=== PATIENT | female | born 1975 ===

== ENCOUNTER 2017-06-29 05:27 | Inpatient (IN) | payer OTHER ==
[~2017-06-29 05:27] MED LIST: CITRIC ACID/SODIUM CITRATE 30 ML UNIT-DOSE CUP PO ONE; ELECTROLYTE-148 SOLN 500 ML IV ONE
[2017-06-29] MEDS ORDERED: ELECTROLYTE-148 SOLN 1,000 ML IV SCH (05:56)
[2017-06-29 06:13] VITALS: BMI 43.1
[2017-06-29 07:01] LABS: BASO % 0.6 % (0-2.0); EOS % 1.9 % (0-4.5); HEMATOCRIT 28.2 % (32.4-45.2); HEMOGLOBIN 9.1 GM/dL (10.7-15.3); LYMPH % 19.3 % (8-40); MCH 23.6 pg (25.7-33.7); MCHC 32.2 g/dl (32.0-36.0); MEAN CELL VOLUME 73.4 fl (80-96); MEAN PLT VOLUME 6.5 fl (7.5-11.1); MONO % 7.6 % (3.8-10.2); NEUT % 70.6 % (42.8-82.8); PLATELET COUNT 361 K/MM3 (134-434); RBC 3.85 M/mm3 (3.60-5.2); RDW 17.4 % (11.6-15.6); WHITE BLOOD COUNT 9.9 K/mm3 (4.0-10.0)
[2017-06-29 08:01] LABS: INR 0.96 (0.82-1.09); PROTHROMBIN TIME (PATIENT) 10.8 SEC (9.98-11.88)
[2017-06-29 08:04] LABS: ACTIVATED PTT 28.2 SECONDS (26.9-34.4)
[2017-06-29 08:09] LABS: ANION GAP 10 (8-16); BLOOD UREA NITROGEN 10 mg/dL (7-18); CALCIUM 7.6 mg/dL (8.5-10.1); CHLORIDE 109 mmol/L (98-107); CO2 20 mmol/L (21-32); CREATININE 0.5 mg/dL (0.55-1.02); GLUCOSE,RANDOM 77 mg/dL (74-106); POTASSIUM 3.8 mmol/L (3.5-5.1); SODIUM 139 mmol/L (136-145)
[2017-06-29] MEDS ORDERED: TUBERCULIN PPD 5 TU/0.1ML SYRINGE (IN PATIENT USE ONLY) ID ONE (09:00)
--- NOTE | 2017-06-29 09:19 | HP ---
Past Medical History - Primary Care Physician PCP:: Malena Chaparro - Admission Chief Complaint: previous Section x 3. iup at 39 week History of Present Illness: 41 yo EDC EGA 39 week with prev CS x 3 for repeat CS HIV neg GBS History Source: Patient Limitations to Obtaining History: No Limitations - Past Medical History ...: 5 ...Para: 3 ...Term: 3 ...: 0 ...Spon : 1 ...Induced : 0 ...Multiple Gestation: 0 ...LMP: 09/23/16 ... Weeks Gestation by Dates: 39.6 ...EDC by Dates: 06/30/17 ...EDC by Sono: 07/07/17 - Past Surgical History Past Surgical History: Yes: Hx Myomectomy: No Hx Transabdominal Cerclage: No - Smoking History Smoking history: Never smoked Have you smoked in the past 12 months: No - Alcohol/Substance Use Hx Alcohol Use: No History of Substance Use: reports: None - Social History Usual Living Arrangement: Yes: With Spouse History of Recent Travel: No Home Medications - Allergies Allergies/Adverse Reactions: Allergies Allergy/AdvReac Type Severity Reaction Status Date / Time apple Allergy Verified 06/29/17 06:14 cat dander Allergy Verified 06/29/17 06:14 dog dander Allergy Verified 06/29/17 06:14 kiwi Allergy Verified 06/29/17 06:14 sunflower seed Allergy Verified 06/29/17 06:14 - Home Medications Home Medications: Ambulatory Orders Albuterol Sulfate Inhaler - [Ventolin Hfa Inhaler -] 1 - 2 inh PO PRN 04/25/17 B12/Levomefolate Calcium/B-6 [Foltx Tablet] 1 each PO DAILY 04/25/17 Docusate Sodium [Colace -] 100 mg PO TID 04/25/17 Vit No.130/Iron/Folic [ Vitamins] 1 each PO DAILY 04/25/17 Review of Systems - Review of Systems Constitutional: reports: No Symptoms Eyes: reports: No Symptoms HENT: reports: No Symptoms Neck: reports: No Symptoms Cardiovascular: reports: No Symptoms Respiratory: reports: No Symptoms Gastrointestinal: reports: No Symptoms Genitourinary: reports: No Symptoms Breasts: reports: No Symptoms Reported Musculoskeletal: reports: No Symptoms Integumentary: reports: No Symptoms Neurological: reports: No Symptoms Endocrine: reports: No Symptoms Hematology/Lymphatic: reports: No Symptoms Psychiatric: reports: No Symptoms Physical Exam - Maternity Vital Signs: Vital Signs Temperature 97.6 F 06/29/17 08:32 Pulse Rate 95 H 06/29/17 08:32 Respiratory Rate 18 06/29/17 08:32 Blood Pressure 120/56 06/29/17 08:32 O2 Sat by Pulse Oximetry (%) Constitutional: Yes: Well Nourished, No Distress - Abdominal Exam/OB Number of Fetuses: Single Presentation: Vertex Contractions: No Category: I Accelerations: Non-Uniform Decelerations: None - Vaginal Exam/OB Vaginal Bleediing: No Amniotic Membrane Status: Intact Presentation: Vertex/Position - Physical Exam Edema: No - Labs Lab Results: CBC, BMP 06/29/17 06:25 06/29/17 06:25 Hemorrhage Risk Assessment - Risk Factors Medium Risk Factors: Yes: Prior , uterine surgery,or multiple laparotomies Risk Score: 1 Risk Level: Medium Risk Problem List - Problems (1) Previous delivery affecting , antepartum Code(s): O34.219 - MATERNAL CARE FOR UNSP TYPE SCAR FROM PREVIOUS DEL (2) Anemia affecting in third trimester Code(s): O99.013 - ANEMIA COMPLICATING , THIRD TRIMESTER Assessment/Plan IUP at 39 week Previous Section x 3 Anemia AMA Plan Repeat Section
[2017-06-29] MEDS ORDERED: METHYLERGONOVINE MALEATE 0.2 MG/1 ML AMP IM PRN (09:20)
[2017-06-29] MEDS ORDERED: IBUPROFEN 800 MG/8 ML IJ IVPB PRN (09:20)
[2017-06-29] MEDS ORDERED: morphine SULFATE/Preservative Free 0.5 MG/ML (1cc Syringe) SPIN ONE (10:02)
[2017-06-29] MEDS ORDERED: ONDANSETRON 4 MG/2 ML VIAL IVPUSH PRN (10:02)
[2017-06-29 10:19] LABS: ARTERIAL BLOOD GAS pH 7.37 (7.35-7.45)
[2017-06-29 10:21] LABS: ARTERIAL BLD GAS O2 SATURATION 64.1 % (90-98.9); ARTERIAL BLOOD GAS PO2 32.9 mmHg (80-100)
[2017-06-29 10:22] LABS: ARTERIAL BLOOD GAS BASE EXCESS -3.2 meq/l (-2-2); VENOUS PC02 36.8 mmHg (38-52); VENOUS PH 7.39 (7.32-7.42); VENOUS PO2 30.7 mmHg (28-48)
--- NOTE | 2017-06-29 10:49 | OP ---
Operative Note - Note: Operative Date: 06/29/17 Pre-Operative Diagnosis: Previous CS x 3. IUP at 39 week Operation: Repeat Section Findings: Live female infant nuchal cord x 1 Post-Operative Diagnosis: Same as Pre-op Surgeon: Malena Chaparro Modeling Teacher: Zulema Herbert Anesthesia: Spinal Estimated Blood Loss (mls): 500 Operative Report Dictated: Yes
[2017-06-29] MEDS ORDERED: ACETAMINOPHEN 325 MG TABLET (FP) PO PRN (10:52)
[2017-06-29] MEDS ORDERED: OXYTOCIN 20 UNITS in 0.9% NS 20 UNIT/1,000 ML INFUS.BAG IV ONE (11:49)
[2017-06-29] MEDS: OXYTOCIN 20 UNITS in 0.9% NS 20 UNIT/1,000 ML INFUS.BAG IV SCH (11:53)
--- NOTE | 2017-06-29 13:05 | OP ---
DATE OF OPERATION: 06/29/2017 PREOPERATIVE DIAGNOSIS: Previous section x3, intrauterine at 39 weeks. OPERATION: Repeat section. POSTOPERATIVE DIAGNOSIS: Previous section x3, intrauterine at 39 weeks, live female infant, nuchal cord x1. SURGEON: Malena Chaparro MD GALLERY OR MUSEUM TECHNICIAN: Zulema Herbert MD ANESTHESIOLOGIST: Aryan Valdez MD ANESTHESIA: Spinal. FINDINGS: A live female infant delivered in OT position. Nuchal cord x1. Cord blood and cord pH obtained. DESCRIPTION OF PROCEDURE: The patient was taken to the operating room and placed in supine position, prepped and draped in the usual sterile fashion. A time-out was performed in accordance with hospital regulation. A Pfannenstiel skin incision was made through the previous scar. Cautery was then used to go through layers of the abdominal wall to the level of the fascia. The fascia was cut in the midline. Cautery was then used to open the fascia in a smiling fashion. Kochers were then used to bluntly and sharply dissect the rectus muscle off the fascia. Muscle was split in the midline. The peritoneal cavity was then entered and carried up and down. A bladder retractor was then placed. The vesicouterine reflection was then entered. The bladder was bluntly dissected out of the operative field. Scalpel was then used to make a low transverse uterine incision. Incision was carried upward using bandage scissors. A live female infant was delivered in OT position. Nose and mouth suction performed. Nuchal cord x1 reduced. Delayed cord clamping was done. Shoulders were delivered without difficulty. The cord was clamped and cut. The infant was handed to the replanting machine operator. Cord pH and cord blood obtained. Placenta was manually extracted from the uterus. The uterus was exteriorized and cleaned with clean laparotomy pads. Uterine incision was then closed using 0 Biosyn suture 1st layer continuous and locking, 2nd layer imbricating the 1st layer. Hemostasis was achieved using [id number] sutures. The bladder was then tacked to the uterus for hemostasis. The uterus interiorized. Tubes and ovaries noted to be normal. Abdominal cavity cleaned with clean laparotomy pads. Abdominal sweep done. Peritoneum was closed using 0 Biosyn suture in continuous fashion. The fascia was then closed using 0 Vicryl suture in 2 parts. The subcutaneous was then closed using 0 Biosyn suture in a continuous stitch. The skin was then closed using 3- 0 Vicryl in subcuticular fashion. The wound was washed and dressed. The patient tolerated the procedure well. Estimated blood loss was 500 mL. Whit [id number] MTDD
[2017-06-29] MEDS: ACETAMINOPHEN 1000 MG/100 ML VIAL (NON FORMULARY) IVPB PRN ×2 (13:39→19:44)
[2017-06-30] MEDS: ACETAMINOPHEN 1000 MG/100 ML VIAL (NON FORMULARY) IVPB PRN (02:19)
[2017-06-30 07:52] LABS: BASO % 0.6 % (0-2.0); HEMATOCRIT 25.6 % (32.4-45.2); HEMOGLOBIN 8.1 GM/dL (10.7-15.3); LYMPH % 8.9 % (8-40); MCH 23.3 pg (25.7-33.7); MCHC 31.5 g/dl (32.0-36.0); MEAN PLT VOLUME 6.5 fl (7.5-11.1); MONO % 5.5 % (3.8-10.2); PLATELET COUNT 308 K/MM3 (134-434); RBC 3.46 M/mm3 (3.60-5.2); RDW 17.3 % (11.6-15.6); WHITE BLOOD COUNT 9.4 K/mm3 (4.0-10.0)
[2017-06-30] MEDS: IBUPROFEN 600 MG TABLET (FP) PO PRN ×3 (09:12→22:45)
[2017-06-30] MEDS: SIMETHICONE 80 MG TAB.CHEW (FP) PO PRN ×2 (09:13→15:01)
--- NOTE | 2017-06-30 09:26 | PN ---
Progress Note (short form) - Note Progress Note: Anesthesiology Post-op 41 y.o. female POD#1 s/p repeat C/S under spinal anesthesia. Pt. c/o some discomfort due to need to void. Otherwise, she is doing well, denies h/a or n/v. VSS. No apparent anesthesia-related issues. Stable post-operative course. Continue management per primary team.
[2017-06-30] MEDS ORDERED: BISACODYL 10 MG SUPP.RECT RC PRN (10:52)
--- NOTE | 2017-06-30 11:42 | PN ---
Progress Note (SOAP) - Subjective Chief Complaint: Pt passed out in bathroom with nurse and pt had a vaso vagal reaction to seeing blood and got anxious - Current Medications Current Medications: Active Medications Acetaminophen (Ofirmev Injection -) 1,000 mg IVPB Q6H PRN PRN Reason: PAIN Last Admin: 06/30/17 02:19 Dose: 1,000 mg Bisacodyl (Dulcolax Suppository -) 10 mg RC PRN PRN PRN Reason: CONSTIPATION Diphenhydramine HCl (Benadryl Injection -) 25 mg IVPUSH Q4H PRN PRN Reason: Pruritis Parenteral Electrolytes (Plasma-Lyte 148 -) 1,000 mls @ 125 mls/hr IV [facility] Last Admin: 06/29/17 07:45 Dose: 125 mls/hr Oxytocin/Sodium Chloride (Normal Saline+20 Units Oxytocin -) 20 unit in 1,000 mls @ 125 mls/hr IV ASDIR [facility] Last Admin: 06/29/17 11:53 Dose: 125 mls/hr Parenteral Electrolytes (Plasma-Lyte 148 -) 1,000 mls @ 125 mls/hr IV [facility]IR [facility] Ibuprofen (Caldolor Injection -) 800 mg IVPB Q8H PRN PRN Reason: PAIN Ibuprofen (Motrin -) 600 mg PO Q4H PRN PRN Reason: PAIN LEVEL 1 - 3 Last Admin: 06/30/17 09:12 Dose: 600 mg Methylergonovine Maleate (Methergine Injection -) 0.2 mg IM Q4H PRN PRN Reason: Excessive Bleeding (L&D) Ondansetron HCl (Zofran Injection) 4 mg IVPUSH Q4H PRN PRN Reason: NAUSEA Oxycodone HCl (Roxicodone -) 5 mg PO Q4H PRN PRN Reason: PAIN LEVEL 4 - 6 Oxycodone HCl (Roxicodone -) 10 mg PO Q4H PRN PRN Reason: PAIN LEVEL 7 - 10 Simethicone (Mylicon -) 80 mg PO Q4H PRN PRN Reason: GAS Last Admin: 06/30/17 09:13 Dose: 80 mg - Objective Vital Signs: Vital Signs Temperature 98.5 F 06/30/17 07:20 Pulse Rate 85 06/30/17 07:20 Respiratory Rate 20 06/30/17 08:00 Blood Pressure 110/73 06/30/17 07:20 O2 Sat by Pulse Oximetry (%) 100 06/29/17 11:45 Constitutional: Yes: Well Nourished, No Distress Respiratory: Yes: WNL Gastrointestinal: Yes: WNL Breast(s): Yes: WNL Musculoskeletal: Yes: WNL Extremities: Yes: WNL Labs Lab Results: CBC, BMP 06/30/17 06:46 06/29/17 06:25 Problem List - Problems (1) Previous delivery affecting , antepartum Code(s): O34.219 - MATERNAL CARE FOR UNSP TYPE SCAR FROM PREVIOUS DEL Assessment/Plan SP CS POD 1 Anemia Plan Bed rest Percocet
[2017-06-30] MEDS: DOCUSATE SODIUM 100 MG CAPSULE (FP) PO SCH ×2 (14:59→22:47)
[2017-06-30] MEDS: ACETAMINOPHEN 325 MG TABLET (FP) PO PRN ×2 (15:01→22:45)
[2017-06-30] MEDS ORDERED: MAGNESIUM HYDROX 2400MG/30ML ORAL SUSPENSION 30 ML CUP PO PRN (17:35)
[2017-06-30] MEDS: POLYETHYLENE GLYCOL 3350 119 GM BTL PO SCH (17:51)
[2017-06-30] MEDS ORDERED: ZOLPIDEM TARTRATE 5 MG TABLET PO PRN (23:38)
[2017-07-01] MEDS: SIMETHICONE 80 MG TAB.CHEW (FP) PO PRN ×5 (04:55→22:19)
[2017-07-01] MEDS: IBUPROFEN 600 MG TABLET (FP) PO PRN ×5 (04:55→22:20)
[2017-07-01] MEDS: ACETAMINOPHEN 325 MG TABLET (FP) PO PRN ×2 (04:59→10:02)
[2017-07-01] MEDS: DOCUSATE SODIUM 100 MG CAPSULE (FP) PO SCH ×3 (06:12→22:20)
[2017-07-01] MEDS ORDERED: BENZOCAINE 28 GM HEMORRHOIDAL OINTMENT TP PRN (09:32)
[2017-07-01] MEDS: POLYETHYLENE GLYCOL 3350 119 GM BTL PO SCH (10:00)
[2017-07-01] MEDS: oxyCODONE HCL 5 MG TABLET PO PRN ×3 (13:52→22:19)
[2017-07-01] MEDS: OXYTOCIN 20 UNITS in 0.9% NS 20 UNIT/1,000 ML INFUS.BAG IV SCH (14:09)
[2017-07-01] MEDS: ELECTROLYTE-148 SOLN 1,000 ML IV SCH (14:09)
[2017-07-02] MEDS: SIMETHICONE 80 MG TAB.CHEW (FP) PO PRN ×4 (05:42→20:47)
[2017-07-02] MEDS: IBUPROFEN 600 MG TABLET (FP) PO PRN ×4 (05:43→20:47)
[2017-07-02] MEDS: oxyCODONE HCL 5 MG TABLET PO PRN ×4 (05:43→20:48)
[2017-07-02] MEDS: DOCUSATE SODIUM 100 MG CAPSULE (FP) PO SCH ×3 (05:46→22:24)
[2017-07-02 07:49] LABS: BASO % 0.9 % (0-2.0); EOS % 5.5 % (0-4.5); HEMATOCRIT 26.2 % (32.4-45.2); HEMOGLOBIN 8.1 GM/dL (10.7-15.3); LYMPH % 27.6 % (8-40); MCH 23.1 pg (25.7-33.7); MEAN CELL VOLUME 74.5 fl (80-96); MEAN PLT VOLUME 6.5 fl (7.5-11.1); PLATELET COUNT 351 K/MM3 (134-434); RBC 3.52 M/mm3 (3.60-5.2); RDW 18.1 % (11.6-15.6)
--- NOTE | 2017-07-02 08:22 | PN ---
Progress Note (SOAP) - Subjective Chief Complaint: Pt doing better No diarrhea - Current Medications Current Medications: Active Medications Acetaminophen (Ofirmev Injection -) 1,000 mg IVPB Q6H PRN PRN Reason: PAIN Last Admin: 06/30/17 02:19 Dose: 1,000 mg Acetaminophen (Tylenol -) 650 mg PO Q4H PRN PRN Reason: PAIN Last Admin: 07/01/17 10:02 Dose: 650 mg Benzocaine (Americaine Ointment -) 1 applic TP PRN PRN PRN Reason: L&D Bisacodyl (Dulcolax Suppository -) 10 mg RC PRN PRN PRN Reason: CONSTIPATION Last Admin: 06/30/17 16:12 Dose: 10 mg Diphenhydramine HCl (Benadryl Injection -) 25 mg IVPUSH Q4H PRN PRN Reason: Pruritis Docusate Sodium (Colace -) 100 mg PO TID [facility] Last Admin: 07/02/17 05:46 Dose: 100 mg Oxytocin/Sodium Chloride (Normal Saline+20 Units Oxytocin -) 20 unit in 1,000 mls @ 125 mls/hr IV [facility] Last Admin: 07/01/17 14:09 Dose: Not Given Parenteral Electrolytes (Plasma-Lyte 148 -) 1,000 mls @ 125 mls/hr IV [facility] Last Admin: 07/01/17 14:09 Dose: Not Given Ibuprofen (Caldolor Injection -) 800 mg IVPB Q8H PRN PRN Reason: PAIN Ibuprofen (Motrin -) 600 mg PO Q4H PRN PRN Reason: PAIN LEVEL 1 - 3 Last Admin: 07/02/17 05:43 Dose: 600 mg Magnesium Hydroxide (Milk Of Magnesia -) 30 ml PO Q24H PRN PRN Reason: CONSTIPATION Last Admin: 06/30/17 18:14 Dose: 30 ml Methylergonovine Maleate (Methergine Injection -) 0.2 mg IM Q4H PRN PRN Reason: Excessive Bleeding (L&D) Ondansetron HCl (Zofran Injection) 4 mg IVPUSH Q4H PRN PRN Reason: NAUSEA Oxycodone HCl (Roxicodone -) 5 mg PO Q4H PRN PRN Reason: PAIN LEVEL 4 - 6 Last Admin: 07/02/17 05:43 Dose: 5 mg Oxycodone HCl (Roxicodone -) 10 mg PO Q4H PRN PRN Reason: PAIN LEVEL 7 - 10 Polyethylene Glycol (Miralax (For Daily Use) -) 17 gm PO DAILY [facility] Last Admin: 07/01/17 10:00 Dose: Not Given Simethicone (Mylicon -) 80 mg PO Q4H PRN PRN Reason: GAS Last Admin: 07/02/17 05:42 Dose: 80 mg Zolpidem Tartrate (Ambien -) 10 mg PO HS PRN PRN Reason: INSOMNIA - Objective Vital Signs: Vital Signs Temperature 97.5 F L 07/01/17 21:20 Pulse Rate 92 H 07/01/17 21:20 Respiratory Rate 20 07/01/17 21:20 Blood Pressure 117/71 07/01/17 21:20 O2 Sat by Pulse Oximetry (%) 100 06/29/17 11:45 Constitutional: Yes: Well Nourished, No Distress Gastrointestinal: Yes: WNL, Normal Bowel Sounds ....Post : Yes: Uterus firm, Uterus non-tender Breast(s): Yes: WNL Musculoskeletal: Yes: WNL Extremities: Yes: WNL Peripheral Pulses WNL: No Neurological: Yes: WNL, Alert, Oriented Labs Lab Results: CBC, BMP 07/02/17 06:00 06/29/17 06:25 Problem List - Problems (1) Previous delivery affecting , antepartum Code(s): O34.219 - MATERNAL CARE FOR UNSP TYPE SCAR FROM PREVIOUS DEL Assessment/Plan SP CS POD 3 Anemia Plan OOB Percocet
[2017-07-02] MEDS: POLYETHYLENE GLYCOL 3350 119 GM BTL PO SCH (10:00)
[2017-07-02] MEDS: ELECTROLYTE-148 SOLN 1,000 ML IV SCH (11:49)
[2017-07-02] MEDS: OXYTOCIN 20 UNITS in 0.9% NS 20 UNIT/1,000 ML INFUS.BAG IV SCH (11:49)
[2017-07-02] MEDS: ACETAMINOPHEN 325 MG TABLET (FP) PO PRN (12:15)
[2017-07-03] MEDS: IBUPROFEN 600 MG TABLET (FP) PO PRN ×3 (00:53→11:22)
[2017-07-03] MEDS: oxyCODONE HCL 5 MG TABLET PO PRN ×2 (00:53→05:37)
[2017-07-03] MEDS: SIMETHICONE 80 MG TAB.CHEW (FP) PO PRN (05:36)
[2017-07-03] MEDS: DOCUSATE SODIUM 100 MG CAPSULE (FP) PO SCH ×2 (05:37→13:45)
[2017-07-03 08:06] VITALS: TEMP 97.8
--- NOTE | 2017-07-03 08:38 | DS ---
Physical Exam-ELECTRICAL PROSPECTING ENGINEER Vital Signs: Vital Signs Temperature 97.8 F 07/03/17 07:10 Pulse Rate 91 H 07/03/17 07:10 Respiratory Rate 20 07/03/17 07:10 Blood Pressure 127/84 07/03/17 07:10 O2 Sat by Pulse Oximetry (%) 100 06/29/17 11:45 Constitutional: Yes: Well Nourished, No Distress Neck: Yes: WNL Gastrointestinal: Yes: WNL, Normal Bowel Sounds, Soft ....Post : Yes: Uterus firm, Uterus non-tender Breast(s): Yes: WNL Musculoskeletal: Yes: WNL Extremities: Yes: WNL Edema: No Wound/Incision: Yes: Clean/Dry, Well Approximated, Steri Strips Neurological: Yes: WNL, Alert, Oriented Labs: CBC, BMP 07/02/17 06:00 06/29/17 06:25 Delivery - Delivery Section: Low Flap Transverse Type of Anesthesia: Spinal Episiotomy/Laceration: None EBL (cc): 500 Delivery, Single - Stages of Labor Date of Delivery: 06/29/17 Time of Delivery: 09:46 Time Placenta Delivered: 09:47 - Condition of Insurance Sales Representative/Automotive Drivability Technician Present: Yes Name: Mary Lopez Gender: Female Weight: 7 lb 5 oz Position: Right, OT Total Hours ROM (Hrs/Mins): 0/2 - 1 Minute Total Score: 9 5 Minutes Total Score: 9 - Feeding Plan Initial Plan: Elected not to breastfeed exclusively throughout hospitalization Discharge Summary Reason For Visit: SCHEDULED C/SECTION Current Active Problems Anemia affecting in third trimester (Acute) Previous delivery affecting , antepartum (Acute) Procedures: Principal: Repeat Section Condition: Good - Instructions Diet, Activity, Other Instructions: Physical activity Resume your normal everyday activity as tolerated no heavy lifting or exercise until seen by your surgeon. You may walk unlimited thee of and climb stairs. You may resume driving the car when you feel safe and comfortable behind the wheel. No sexual activity as instructed. Wound care If you have a bandage, leave it on, and keep dry for 48-72 hours. After that time discard the outer bandage. If they are tapes on the skin under the out of bandage leave them in place. They will peel off in the next 7 to 10 days. Do Not Peel them off. You may shower the day after surgery. If there are tapes present on the skin, you may shower over them. Diet There are no dietary restrictions. Eat healthy, high-fiber foods. Drink 6 to 8 glasses of liquid each day. This will assist in keeping your bowels are regular. Pain management You may take Tylenol or acetaminophen or Ibuprofen (for example, Motrin, Advil etc.) from my pain prescription medication is ordered should be taken as prescribed for moderate to severe pain. Call MD for any of the following: Severe pain not relieved by medication Fever of 101 or higher Excessive bleeding or drainage on dressing Inability to urinate Call Dr. Chaparro and make appt. to be seen in 1 week Disposition: HOME - Home Medications Comprehensive Discharge Medication List: Ambulatory Orders Albuterol Sulfate Inhaler - [Ventolin Hfa Inhaler -] 1 - 2 inh PO PRN 04/25/17 B12/Levomefolate Calcium/B-6 [Foltx Tablet] 1 each PO DAILY 04/25/17 Docusate Sodium [Colace -] 100 mg PO TID 04/25/17 Vit No.130/Iron/Folic [ Vitamins] 1 each PO DAILY 04/25/17 Ibuprofen [Motrin -] 600 mg PO QID #28 tablet 07/01/17
[2017-07-03] MEDS: POLYETHYLENE GLYCOL 3350 119 GM BTL PO SCH (10:32)
[2017-07-03] MEDS: ACETAMINOPHEN 325 MG TABLET (FP) PO PRN (11:23)
[2017-07-03 11:39] VITALS: BP 122/80; PULSE 92
--- NOTE | 2017-07-04 14:16 | PATH ---
Surgical Pathology Report Patient Name: ISHAN HERNANDEZ Med. Rec. #: [id number] /Age/Gender: 1975 (Age: 41) / F Account: [id number] Location: [facility] OBS/LEMON PICKER Taken: 06/29/2017 Received: 06/30/2017 Reported: 07/04/2017 Physicians: Malena Chaparro M.D. Specimen(s) Received PLACENTA Clinical History , 39.6 weeks for repeat , previous x3 Final Diagnosis PLACENTA, SECTION: 498 G THIRD TRIMESTER PLACENTA WITH TRIVASCULAR UMBILICAL CORD AND UNREMARKABLE PLACENTAL MEMBRANES. Electronically Signed Opal Schuler M.D. Gross Description The specimen is received fresh labeled placenta and is a 498 gram, 15.5 x 15.0 x 2.3 cm. placenta with attached membranes and umbilical cord. The attached membranes are balderrama, translucent with focal opacities and insert marginally. The umbilical cord measures 10 cm. in length and averages 1 cm. in diameter. The cord inserts eccentrically, 2.5 cm. to the nearest margin. No true knots or strictures are identified. Cut surface of the umbilical cord reveals 3 vessels. The surface is vega blue with moderate fibrin deposition and appropriate caliber vessels. The maternal surface is red-brown with focal defects. Sectioning reveals red-brown, spongy parenchyma. No lesions are identified. Glove Cutter sections are submitted in three cassettes as follows: 1- membrane rolls and umbilical cord; 2-3- full thickness sections of placenta. 07/03/2017 [facility]07/03/2017
== END 2017-07-03 14:30 | disposition home or self-care (01) | DRG 766 ==
LOC: JLDR 05:27 → J3W 12:16
PROVIDERS: ADMIT Obstetrics & Gynecology; ATTEND Obstetrics & Gynecology
PROC: 10D00Z1 Extraction of Products of Conception, Low, Open Approach (ICD-10-PCS; principal; 2017-06-29)
DX: O34.211 Maternal care for low transverse scar from previous cesarean delivery (principal); N85.8 Other specified noninflammatory disorders of uterus; O99.02 Anemia complicating childbirth; O69.2XX0 Labor and delivery complicated by other cord entanglement, with compression, not applicable or unspecified; Z3A.39 39 weeks gestation of pregnancy; Z37.0 Single live birth
CPT/HCPCS: 36415; 36600; 80048; 82803; 85025; 85610; 85730; 86593; 86850; 86900; 86901; 87389; 88307-TC